=== PATIENT | female | born 1955 | race Caucasian/White ===

== ENCOUNTER 2019-04-03 05:45 | Day surgery (SDC) | payer OTHER ==
[2019-04-02 12:24] VITALS: BMI 26.1
[2019-04-03] VITALS (28 sets, daily range): BP systolic 143–198; BP diastolic 56–97; PULSE 64–92; RESP 9–126; Ht 162.6 cm; Wt 72.7 kg
[~2019-04-03] VITALS: Ht 162.6 cm; Wt 72.7 kg
--- NOTE | 2019-04-03 06:44 | PREAC ---
Date/Time of Note Date/Time of Note DATE: 04/03/19 TIME: 06:41 Anesthesia Eval and Record Evaluation Time Pre-Procedure Interview DATE: 04/03/19 TIME: 06:41 Age 63 Sex female NPO: 8 hrs Preoperative diagnosis Capsular Contracture Planned procedure Breast Reconstruction Past Medical History Past Medical History: Includes Cardio: HTN Endo: Diabetes Surgery & Anesthesia Issues No known issue Meds Anticoagulation: No Beta Sunil within 24 hr: Yes Current Medications Sodium Chloride 1,000 ml @ 25 mls/hr Q24H IV ; Start 04/03/19 at 07:00 Meds reviewed: Yes Allergies Coded Allergies: No Known Allergy (Unverified , 04/02/19) Allergies Reviewed: Yes Labs/Studies Labs Reviewed: Reviewed by anesthesiologist Result Diagram: 04/03/19605 Laboratory Tests 04/03/19 06:06 test: N/A Pre-procedure Exam Airway: Adequate mouth opening Mallampati: Mallampati II Teeth: Normal Lung: Normal Heart: Normal ASA Physical Status ASA physical status: 2 Emergency: None Planned Anesthetic General/MAC: LMA Pre-operative Attestations Prior to commencing anesthesia and surgery, the patient was re-evaluated, there was verification of: *The patient's identity *The results of appropriate recent lab work and preoperative vital signs *The above evaluation not changing prior to induction *Anesthetic plan, risk benefits, alternative and complications discussed with patient/family; questions answered; patient/family understands, accepts and wi shes to proceed. PHILIPP DELGADO MD Apr 03, 2019 06:44
[2019-04-03] MEDS ORDERED: MIDAZOLAM 1 MG/ML 2 ML INJ ONE (06:47)
[2019-04-03] MEDS ORDERED: ROCURONIUM 50 MG INJ ONE (06:47)
[2019-04-03] MEDS ORDERED: PROPOFOL 20 ML ONE (06:47)
[2019-04-03] MEDS ORDERED: SUCCINYLCHOLINE CHLORIDE 100 MG/5 ML SYG IV ONE (06:47)
[2019-04-03] MEDS ORDERED: ONDANSETRON 4 MG INJ ONE (06:48)
[2019-04-03] MEDS ORDERED: hydrALAzine 20 MG INJ ONE (06:48)
[2019-04-03] MEDS ORDERED: KETOROLAC 30 MG INJ ONE (06:48)
[2019-04-03] MEDS ORDERED: POTA20TA15 PO (07:00)
[2019-04-03] MEDS ORDERED: CEFAZOLIN 1 GM INJ ONE (07:00)
[2019-04-03] MEDS ORDERED: SOD CHLORIDE 0.9% 1,000 ML IV SCH (07:00)
[2019-04-03] MEDS ORDERED: SITA1TBM7 PO (07:00)
[2019-04-03] MEDS ORDERED: NIFE60TA18 PO (07:00)
[2019-04-03] MEDS ORDERED: CHOL100062 PO (07:01)
[2019-04-03] MEDS ORDERED: CHLO25TA2 PO (07:01)
[2019-04-03] MEDS ORDERED: METO-429 PO (07:02)
[2019-04-03] MEDS ORDERED: INSU100I33 SC ×2 (07:02→07:03)
[2019-04-03] MEDS ORDERED: GLIM4TAB PO (07:02)
[2019-04-03] MEDS ORDERED: LIRA0.6P SQ (07:04)
[2019-04-03] MEDS ORDERED: POLYMYXIN/BACITRACIN 1L IRRIG ONE ×2 (07:19→11:09)
[2019-04-03] MEDS ORDERED: GENTAMICIN 80 MG INJ ONE ×2 (07:19→11:09)
[2019-04-03] MEDS ORDERED: SODIUM CL BACTERIOSTATIC 30 ML INJ ONE (07:29)
[2019-04-03] MEDS ORDERED: BUPIVACAINE 0.25% (MPF) 30 ML INJ ONE (07:29)
--- NOTE | 2019-04-03 07:38 | HPN ---
Date/Time of Note Date/Time of Note DATE: 04/03/19 TIME: 07:37 Interval H&P Admission Note Pt. seen H&P reviewed: No system changes LUDIN TALLEY MD Apr 03, 2019 07:38
[2019-04-03] MEDS ORDERED: BUPIVACAINE 0.5%/EPI (SDV) 30 ML INJ ONE (07:57)
[2019-04-03] MEDS ORDERED: HYDROCODONE/APAP (5/325) TAB PO PRN (08:00)
[2019-04-03] MEDS ORDERED: ACETAMINOPHEN 325 MG TAB PO PRN (08:00)
[2019-04-03] MEDS ORDERED: BUPIVACAINE LIPOSOME/PF 266 MG/20 ML VIAL INFIL SCH (08:00)
[2019-04-03] MEDS ORDERED: morphine 2 MG INJ IV PRN (08:00)
[2019-04-03] MEDS ORDERED: ONDANSETRON 4 MG INJ IV PRN ×2 (08:00→09:00)
[2019-04-03] MEDS ORDERED: FENTAnyl 50 MCG/ML VIAL ONE ×2 (08:56→10:05)
[2019-04-03] MEDS ORDERED: OXYCODONE/ACETAMINOPHEN (5/325) TAB PO PRN (09:00)
[2019-04-03] MEDS ORDERED: HYDROmorphONE 1 MG/5 ML IV SYRINGE IV PRN (09:00)
[2019-04-03] MEDS ORDERED: FENTAnyl 50 MCG/ML VIAL IV PRN (09:00)
[2019-04-03] MEDS ORDERED: hydrALAzine 20 MG INJ IV PRN (12:30)
--- NOTE | 2019-04-03 12:30 | PAC ---
Date/Time of Note Date/Time of Note DATE: 04/03/19 TIME: 12:30 Post-Anesthesia Notes Post-Anesthesia Note Last documented vital signs Vital Signs Date Temp Pulse Resp B/P (MAP) Pulse Ox O2 O2 Flow FiO2 Time Delivery Rate 04/03/19 96.8 65 18 143/73 99 Room Air 07:00 (96) Activity: WNL Respiratory function: WNL Cardiovascular function: WNL Mental status: Baseline Pain reasonably controlled: Yes Hydration appropriate: Yes Nausea/Vomiting absent: Yes PHILIPP DELGADO MD Apr 03, 2019 12:30
--- NOTE | 2019-04-03 12:37 | OPR ---
Date/Time of Note Date/Time of Note DATE: 04/03/19 TIME: 12:36 Operative Report Free Text/Dictation Plastic Surgery Operative Report Preoperative diagnosis: Bilateral grade 4 capsular contracture Postoperative diagnosis: Same Procedure: Bilateral implant removal, capsulectomy, replacement Surgeon: Humberto العراقي.: RODOLFO Mcmahon Anesthesia: General EBL: Minimal IV fluids: Per anesthesia flowsheet Findings: None Complications: None Dispo: Home Indications for procedure: Patient presents today to undergo bilateral implant removal, capsulectomy, and replacement. She would like her breasts to be approximately 450 cc. She does not want a mastopexy even though this is recommended and understands that her breasts will be significantly less volume in the upper pole and less projection. The risks, benefits, alternatives of performing this procedure were discussed with the patient including risks of bleeding, infection, wound healing problems, asymmetry, incomplete correction, overcorrection, as well as implant related complications such as rotation, deflation, capsular contracture. Patient states that she understands these risks and agrees to proceed with procedure. All questions were answered and no guarantees were given with regards to the outcome of this procedure. Description of procedure: Patient was brought to the operating room at [facility] where general anesthesia was induced and she was prepped and draped in usual sterile fashion. 5 cc of 0.25% Marcaine with 1: 200,000 epinephrine were injected into the planned incision sites in the inframammary fold of each breast. Attention was first turned to the left breast where the incision was made with a 10 blade and electrocautery was used to dissect down the breast implant capsule. The capsule was extremely thick and was very large with thinned breast tissue and skin. Dissection proceeded along the surface of the capsule as far as was possible medially, laterally, anteriorly, and posteriorly. Once dissection was no longer possible due to the size of the capsule, the capsule was opened and the fluid within the pocket was drained. This significantly reduced the size of the capsule. Dissection then proceeded along the surface of the capsule. There was a significant amount of scarring in the plane between the capsule and breast tissue and muscle. Scarring made visualization difficult. As dissection proceeded anteriorly, a dense scar was encountered at the level of the inferior border of the areola. This was a scar between the breast implant capsule and the skin. As the scar was released, and made a small hole in the skin. Dissection proceeded around this along the surface of the capsule and finally onto the posterior anterior portion of the capsule. Once again, there is significant dense scarring present that made visualization difficult with no clear plane. Dissection proceeded slowly until the capsule was carefully cleared from all the surrounding breast tissue and was removed. The breast was irrigated with antibiotic irrigation. Multiple rounds of hemostasis were achieved with electrocautery. Attention was then turned to the contralateral breast where a similar procedure was carried out. The incision was made with a 10 blade and electrocautery was used to dissect down to the breast implant capsule. Once again, the capsule was extremely thick and was very large. Dissection proceeded along the surface of the capsule as far as was possible in all directions and then when dissection was no longer possible due to the size of the capsule, the capsule was opened and the fluid within it was drained. This significantly aided visualization that dissection proceeded once again along the surface of the capsule. There w as extremely dense and thick scarring surrounding the capsule and dissection proceeded slowly as the capsule was carefully cleared from the surrounding breast tissue and pectoralis muscle. Dissection proceeded carefully and finally the capsule was cleared from the overlying breast tissue and pectoralis muscle and was removed. The pocket was irrigated with antibiotic irrigation and hemostasis was achieved with electrocautery. Due to the dense scarring and adherence between the capsule and the breast, and additional 1.5 hours of operative time was necessary. The pockets were then inspected. A 450 cc sizer was opened, rinsed in an tibiotic irrigation and was inserted into the left breast. It was inflated to 450 cc. This appeared close to the patient's desired size and therefore the sizer was removed and was placed into the right breast. This was laterally displaced and therefore the sizer was removed. Multiple running and interrupted 2-0 PDS sutures were used to close the right lateral pocket. A capsulotomy was then carried out with electrocautery. The sizer was then reinserted into the right breast and appeared symmetric to the left side. Multiple rounds of hemostasis and irrigation were carried out. 20 cc of dilute Exparel solution was injected into each breast to help with postoperative analgesia. Gloves and instruments were then changed and then an [id number] textured saline implant SN [id number] was opened, rinsed in antibiotic irrigation. The air was evacuated and 60 cc were placed into this implant through a sterile fill system. This was inserted into the left breast. A similar procedure was performed on the right breast with the same size and style implant serial #[id number]. The implants were then filled to 450 cc. The patient was sat up in the operating room table. The breasts appeared to be symmetric. There was significantly less upper pole fullness then preoperatively which was with the patient desired. The breast appeared slightly smaller than were anticipated and therefore each was filled to 480cc. This was symmetric with the patient's previously stated desired size. Therefore, the fill ports were removed and the valves were palpated to ensure that they were seated. The incisions were then closed with a deep layer of 2-0 Vicryl suture followed by 3-0 Vicryl suture and 4-0 Monocryl suture. On the left breast, the skin opening was excised with the 15 blade and was then closed with 2-0 Vicryl suture, 3-0 Vicryl suture and 4-0 Monocryl suture. The patient tolerated procedure well, there were no complications, follow-up information and wound care instructions were given. Maryse REYNOLDS assisted with this procedure. Preoperative Diagnosis bilateral grade IV capsular contracture Postoperative Diagnosis same Operation/Procedure Performed bilateral breast implant removal, capsulectomy, and replacement Surgeon see signature line [employer] RODOLFO mcmahon Anesthesia Type: general Estimated Blood Loss: minimal Transfusion none Specimen bilateral breast implants and capsules Grafts/Implants bilateral breast implants Tubes/Drains none Complications none Procedure Description see dictation LUDIN TALLEY MD Apr 03, 2019 12:37
[2019-04-03] MEDS: hydrALAzine 20 MG INJ IV PRN ×4 (13:11→15:24)
== END 2019-04-03 16:14 | disposition home or self-care (01) ==
LOC: SDS 05:45
PROVIDERS: ATTEND Surgery Plastic and Reconstructive Surgery
DX: T85.44XA Capsular contracture of breast implant, initial encounter (principal); Y83.8 Other surgical procedures as the cause of abnormal reaction of the patient, or of later complication, without mention of misadventure at the time of the procedure; E11.9 Type 2 diabetes mellitus without complications; E78.00 Pure hypercholesterolemia, unspecified
CPT/HCPCS: 19340; 19371; 71045; 80053; 82962; 85025; 85610; 85730; 88304; C9290; J0360; J0690; J1170; J1580; J2250; J2405; J3010; Z7512; Z7610; J1885